=== PATIENT | male | born 1930 | race Caucasian/White ===

== ENCOUNTER → 2016-07-08 | Outpatient (CLI) | payer BC ==
[~2016-07-08] MED LIST: ALBUAER INH; ASMIN/60 PO; CHOL200010 PO; CRDCD120 PO; LEVO50TA PO; PRED-301 PO; SALM50AE2 INH; SNG10 PO
== END | disposition home or self-care (01) ==
LOC: C.LAB1850 13:19
PROVIDERS: ATTEND Psychiatry & Neurology Neurology
DX: I62.9 Nontraumatic intracranial hemorrhage, unspecified (principal); N28.89 Other specified disorders of kidney and ureter

== ENCOUNTER → 2016-07-28 | Outpatient (CLI) | payer BC ==
[~2016-07-28] MED LIST changes: +GADAVIST IV PRN
--- NOTE | 2016-07-28 14:34 | DIAGNOSTIC IMAGING REPORT ---
MRI OF THE BRAIN COMBO CLINICAL HISTORY: Right renal mass. History of hemorrhage. COMPARISON STUDY: CT of the brain dated 05/06/2016. MRI of the brain dated 03/25/2016. TECHNIQUE: MRI of the brain was performed utilizing various T1 and T2-weighted sequences in the axial, sagittal, and coronal planes. Contrast-enhanced sequences were acquired following the administration of 6.5 cc of Gadavist. FINDINGS: Brain parenchyma: There is encephalomalacia with hemosiderin deposition identified in the right posterior temporal lobe at a site of previous hemorrhage. No acute hemorrhage is seen. Subependymal calcifications as well as calcifications within the basal ganglia are similar to previous. There is no restricted diffusion typical for acute ischemia. No enhancing mass lesion is identified on the postcontrast images. There is an indeterminant lesion in the high left posterior frontal lobe with surrounding edema. There is no associated enhancement, this measures approximately 1.5 cm. A calcification was noted in this lesion on previous CT. 2 additional ill-defined cortical based lesions are suggested in the left posterior parietal lobe on coronal FLAIR image #21 and in the anterior left occipital lobe on coronal FLAIR image #20. These were only seen on the FLAIR sequences. Mild nonspecific edema is now seen within the right anterior temporal pole. This is new from 03/25/2016. No extra-axial fluid collection is seen. There is mild patchy subcortical and periventricular microangiopathic disease. The cerebellar tonsils are normal in configuration. Ventricles, sulci, and cisterns: Prominent secondary to involutional change. Pituitary and sella: Unremarkable. Intracranial vasculature: Normal flow voids are maintained at the skull base. Orbits: The bony orbits are grossly intact. Orbital contents are normal in appearance. Sinuses and mastoids: There is trace mucosal thickening within the maxillary and ethmoid sinuses. The remaining paranasal sinuses are clear. There are trace mastoid effusions. Calvarium: Unremarkable. Cervical cord: Partially visualized cervical spinal cord is normal in morphology and signal intensity. IMPRESSION: 1. There is encephalomalacia with associated hemosiderin deposition seen in the right posterior temporal lobe at the site of previous hemorrhage. 2. No acute hemorrhage is seen and there is no evidence of acute ischemia. 3. No enhancing mass is identified. 4. Again seen are numerous subependymal and basal ganglia calcifications suggesting tuberous sclerosis. 5. There is an approximately 1.5 cm nonenhancing lesion which contains a central calcification in the high left posterior frontal lobe. There is surrounding edema FLAIR sequence. The appearance is nonspecific but concerning for a nonenhancing mass such as a low-grade glioma. The appearance is not typical for metastatic disease. 36 month follow-up is recommended for reassessment. 6. Two additional subtle lesions are suggested within the left parietal and left occipital lobes, only seen on the FLAIR sequence. 7. There is mild edema within the anterior right temporal lobe. This was not seen previously and is of indeterminant significance. An additional lesion at this site is not excluded. Electronically signed by: Geo Carpenter M.D. 07/28/2016 2:33 PM Dictated Date/Time: 07/28/2016 2:05 PM
== END | disposition home or self-care (01) ==
LOC: C.MRI 12:21
PROVIDERS: ATTEND Psychiatry & Neurology Neurology
DX: N28.89 Other specified disorders of kidney and ureter (principal); I62.9 Nontraumatic intracranial hemorrhage, unspecified

== ENCOUNTER → 2017-02-17 | Outpatient (CLI) | payer BC ==
[~2017-02-17] MED LIST changes: -GADAVIST IV PRN
[2017-02-17 11:03] LABS: BLOOD UREA NITROGEN 19 mg/dl (7-18)
== END | disposition home or self-care (01) ==
LOC: C.LAB1850 09:32
PROVIDERS: ATTEND Psychiatry & Neurology Neurology
DX: Z00.00 Encounter for general adult medical examination without abnormal findings (principal); R90.89 Other abnormal findings on diagnostic imaging of central nervous system

== ENCOUNTER → 2017-02-20 | Outpatient (CLI) | payer BC ==
[~2017-02-20] MED LIST changes: +GADAVIST IV PRN
--- NOTE | 2017-02-20 17:08 | DIAGNOSTIC IMAGING REPORT ---
BRAIN COMBO CLINICAL HISTORY: 87 years-old Male presenting with ABNORMAL BRAIN MRI, history of right temporal lobe hemorrhagic infarct. TECHNIQUE: Multisequence, multiplanar MR imaging of the brain was performed before and after the administration of intravenous contrast. IV contrast: 7 mL of Gadavist. COMPARISON: 07/28/2016. FINDINGS: Ventricles and sulci normal in size. Interval development of intrinsically T1 intensity in the left frontal lobe consistent with parenchymal hematoma. Surrounding hemorrhage may be present in the subarachnoid space. The previously demonstrated T2 hyperintense 1.9 cm lesion in the high left frontal region again demonstrates peripheral T2 hyperintensity and a inner rim of mild T2 hypointensity (series 6 image 20). This does not enhance and may demonstrate central calcification. The previously identified 2 additional sites of subtle FLAIR abnormality involving the overlying herman matter unchanged in appearance (series 8 images 20 and 21), involving the left parieto-occipital region. Periventricular and scattered subcortical T2/FLAIR hyperintensity likely chronic small vessel ischemic change. This prominently involves the right temporal lobe. Encephalomalacia and gliosis in the right posterior temporal region from prior hemorrhagic infarct. The presence of subependymal calcification is better appreciated on prior CT from 05/06/2016. T2 skull base flow voids preserved. Allowing for the presence of an transiting T1 hyperintensity within the left frontal lesion, no abnormal parenchymal enhancement. Bone marrow signal intensity within the calvarium within normal limits. IMPRESSION: 1. Acute parenchymal hemorrhage in the left frontal lobe with small amount of associated subarachnoid hemorrhage. Assessment for an underlying lesion is difficult given the presence of hemorrhage. Follow-up after resolution is advised. 2. Stable appearance of encephalomalacia and gliosis from prior right temporal lobe parenchymal hemorrhage. 3. Subependymal calcifications better appreciated on prior CT from 05/06/2016. These can be seen in the setting of tuberous sclerosis among other etiologies. 4. Stable appearance of the focal lesion in the high left frontal lobe, which is nonenhancing and contains central calcification. In the setting of tuberous sclerosis, this could represent a cortical/subcortical tuber. The lack of enhancement suggests against a metastasis or high-grade glial neoplasm. 5. Additional abnormal signal intensity involving the overlying herman matter in the left parieto-occipital lobe may represent additional cortical tubers or focal cortical dysplasia. 6. The report will be called/faxed according to standard departmental protocol. Electronically signed by: Karson Kenyon M.D. 02/20/2017 5:06 PM Dictated Date/Time: 02/20/2017 4:45 PM
== END | disposition home or self-care (01) ==
LOC: C.MRI 13:50
PROVIDERS: ATTEND Psychiatry & Neurology Neurology
DX: R90.89 Other abnormal findings on diagnostic imaging of central nervous system (principal); I61.8 Other nontraumatic intracerebral hemorrhage; G93.89 Other specified disorders of brain

== ENCOUNTER → 2017-02-28 | Outpatient (CLI) | payer BC ==
[~2017-02-28] MED LIST changes: -GADAVIST IV PRN
[2017-02-28 10:09] LABS: BASO % 0.4 %; BASO ABS # 0.03 K/uL (0-0.2); COMPLETE YES; EOS % 1.5 %; HEMATOCRIT 50.3 % (42-52); IG% 0.4 %; LYMPH % 36.6 %; LYMPH ABS # 2.49 K/uL (1.2-3.4); MEAN CELL VOLUME 95.6 fL (80-100); MEAN CORPUSCULAR HEMOGLOBIN 33.5 pg (25-34); MEAN PLATELET VOLUME 10.2 fL (7.4-10.4); MONO % 6.8 %; NEUT % 54.3 %; PLATELET COUNT 168 K/uL (130-400); RED BLOOD COUNT 5.26 M/uL (4.7-6.1)
[2017-02-28 10:42] LABS: ALT/SGPT 23 U/L (12-78); BLOOD UREA NITROGEN 27 mg/dl (7-18); BUN/CREATININE RATIO 20.7 (10-20); CARBON DIOXIDE 29 mmol/L (21-32); CHLORIDE 106 mmol/L (98-107); CHOLESTEROL 120 mg/dl (0-200); CREATININE 1.32 mg/dl (0.60-1.40); GLUCOSE 85 mg/dl (70-99); POTASSIUM 3.7 mmol/L (3.5-5.1); SODIUM 141 mmol/L (136-145); TRIGLYCERIDES 162 mg/dl (0-150); VERY LOW DENSITY LIPOPROT CALC 32 mg/dl
[2017-02-28 10:53] LABS: ALB/GLOB RATIO 1.3 (0.9-2); ALKALINE PHOSPHATASE 85 U/L (45-117); AST/SGOT 17 U/L (15-37); CHOLESTEROL/HDL RATIO 2.5; HDL CHOLESTEROL 48 mg/dl; LDL CHOLESTEROL CALCULATED 40 mg/dl
== END | disposition home or self-care (01) ==
LOC: C.LAB1850 08:59
PROVIDERS: ATTEND Psychiatry & Neurology Neurology
DX: J30.9 Allergic rhinitis, unspecified (principal); I35.0 Nonrheumatic aortic (valve) stenosis; J45.909 Unspecified asthma, uncomplicated; F32.9 Major depressive disorder, single episode, unspecified; I10 Essential (primary) hypertension; E03.9 Hypothyroidism, unspecified; I61.9 Nontraumatic intracerebral hemorrhage, unspecified

== ENCOUNTER → 2017-03-08 | Outpatient (CLI) | payer BC ==
[~2017-03-08] MED LIST changes: -CRDCD120 PO; +DILT120C50 PO; +OPTIRAY 320 IV PRN
--- NOTE | 2017-03-08 11:25 | DIAGNOSTIC IMAGING REPORT ---
ANGIOGRAPHY HEAD COMBO HISTORY: Intracranial hemorrhage intracranial hemorrhage TECHNIQUE: Multiaxial CT images of the head were performed both before and after the intravenous administration of contrast to evaluate the major cerebral vessels. Maximum intensity projection images were also obtained. A dose lowering technique was utilized adhering to the principles of ALARA. COMPARISON: 05/06/2016 FINDINGS: There is no mass, hematoma, midline shift, or acute infarct. Produces described hemorrhagic foci have resolved. There is no evidence for abnormal postcontrast enhancement. Age-related atrophy and chronic small vessel change are present throughout. Ventricular system is midline. No significant postcontrast enhancement. Visualized intracranial internal carotid arteries, distal vertebral arteries, and basilar artery are widely patent. There is no significant stenosis, occlusion, or aneurysm seen within the bilateral ACAs, MCAs, or dumper operator. IMPRESSION: 1. Interval resolution of all intracranial hemorrhagic components. 2. Age-related atrophy, regions of encephalomalacia, as well as a chronic small vessel change. No abnormal postcontrast enhancement 3. Negative CTA of the brain for age. The above report was generated using voice recognition software. It may contain grammatical, syntax or spelling errors. Electronically signed by: Jurgen Lopez M.D. 03/08/2017 11:23 AM Dictated Date/Time: 03/08/2017 11:16 AM
== END | disposition home or self-care (01) ==
LOC: C.CTS 10:30
PROVIDERS: ATTEND Psychiatry & Neurology Neurology
DX: I61.9 Nontraumatic intracerebral hemorrhage, unspecified (principal); G31.1 Senile degeneration of brain, not elsewhere classified

== ENCOUNTER 2017-08-14 14:34 | Observation (INO) | payer BC ==
[~2017-08-14] VITALS: Ht 167.6 cm; Wt 68.9 kg
[~2017-08-14 14:34] MED LIST changes: -ASMIN/60 PO; +DILT-202 PO; -DILT120C50 PO; -OPTIRAY 320 IV PRN; -SNG10 PO
[2017-08-14] MEDS ORDERED: KETOROLAC TROMETHAMINE 30 MG/ML VIAL IV STA (14:53)
[2017-08-14] MEDS ORDERED: SNG10 PO (14:58)
[2017-08-14] MEDS ORDERED: ASMIN/60 INH (14:59)
[2017-08-14 15:33] LABS: BASO % 0.3 %; BASO ABS # 0.02 K/uL (0-0.2); EOS % 0.7 %; EOS ABS # 0.05 K/uL (0-0.5); HEMATOCRIT 49.8 % (42-52); HEMOGLOBIN 17.4 g/dL (14.0-18.0); IG# 0.02 K/uL (0.00-0.02); LYMPH % 31.3 %; LYMPH ABS # 2.26 K/uL (1.2-3.4); MEAN CELL VOLUME 94.9 fL (80-100); MEAN CORPUSCULAR HEMOGLOBIN 33.1 pg (25-34); MEAN CORPUSCULAR HGB CONC 34.9 g/dl (32-36); MEAN PLATELET VOLUME 9.6 fL (7.4-10.4); MONO % 6.7 %; MONO ABS # 0.48 K/uL (0.11-0.59); NEUT % 60.7 %; NEUT ABS # 4.38 K/uL (1.4-6.5); PLATELET COUNT 197 K/uL (130-400); RED CELL DISTRIBUTION WIDTH CV 13.5 % (11.5-14.5); RED CELL DISTRIBUTION WIDTH SD 46.7 fL (36.4-46.3); WHITE BLOOD COUNT 7.21 K/uL (4.8-10.8)
[2017-08-14 15:46] LABS: PTT PATIENT 25.2 SECONDS (21.0-31.0)
[2017-08-14 15:49] LABS: CREATININE 1.48 mg/dl (0.60-1.40); POTASSIUM 3.5 mmol/L (3.5-5.1)
[2017-08-14] MEDS ORDERED: ARC10 PO (16:08)
[2017-08-14] MEDS ORDERED: LEVO50TA6 PO (16:08)
[2017-08-14] MEDS ORDERED: SRVDIN60 INH (16:09)
[2017-08-14] MEDS ORDERED: SERT1TAB88 PO (16:09)
[2017-08-14] MEDS ORDERED: VNTHFA/IN INH (16:09)
[2017-08-14] MEDS ORDERED: CHOL100027 PO (16:09)
--- NOTE | 2017-08-14 16:31 | DIAGNOSTIC IMAGING REPORT ---
TWO VIEW CHEST CLINICAL HISTORY: Dyspnea. FINDINGS: AP and lateral chest radiographs are compared to study dated 03/25/2016 and correlated with chest CT dated 02/19/2016. The AP view is degraded by patient rotation. The 2-lead cardiac pacemaker is unchanged in position and partially obscures the right upper chest. The heart is enlarged and there is atherosclerotic calcification of the thoracic aorta. The pulmonary vasculature is noncongested. Emphysema and chronic interstitial thickening are similar to previous. No airspace consolidation or pleural effusion is identified. Apical scarring is observed. There is no pneumothorax. The skeletal structures are osteopenic. The bony thorax appears intact. IMPRESSION: 1. Cardiomegaly and cardiac pacemaker. There is no radiographic evidence of congestive failure. 2. No airspace consolidation or pleural effusion is identified. Electronically signed by: Geo Carpenter M.D. 08/14/2017 4:29 PM Dictated Date/Time: 08/14/2017 4:28 PM
--- NOTE | 2017-08-14 16:32 | DIAGNOSTIC IMAGING REPORT ---
L-SPINE MIN 4 VIEWS ROUTINE CLINICAL HISTORY: Back pain. Evaluate for fracture. COMPARISON: Lumbar spine radiographs February 13, 2015. FINDINGS: Mild loss of height of L1 is unchanged exam of February 13, 2015. There is no acute fracture. There is moderate multilevel degenerative disc disease and facet arthrosis. The appearance is similar to exam of February 13, 2015. IMPRESSION: 1. No acute lumbar spine fracture or subluxation. 2. 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 3. 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 Electronically signed by: Miles Wisdom M.D. 08/14/2017 4:31 PM Dictated Date/Time: 08/14/2017 4:30 PM
[2017-08-14] MEDS ORDERED: ACETAMINOPHEN 325 MG TAB PO PRN (17:15)
[2017-08-14] MEDS ORDERED: NITROGLYCERIN 0.4 MG SL PER TAB CHARGE SL PRN (17:15)
[2017-08-14] MEDS ORDERED: MAGNESIUM HYDROXIDE SUSP 30 ML UDC PO PRN (17:15)
[2017-08-14] MEDS ORDERED: ONDANSETRON INJ 2 MG/ML 2 ML VIAL IV PRN (17:15)
[2017-08-14] MEDS ORDERED: POLYETHYLENE (MIRALAX) 17 GM PACK PO PRN (17:15)
[2017-08-14] MEDS ORDERED: MoRPHine SULFATE 2 MG/ML CARP IV PRN (17:15)
[2017-08-14] MEDS ORDERED: ALBUTEROL HFA 8 GM INHALER INH PRN (17:15)
[2017-08-14] MEDS ORDERED: ALUMINUM/MAGNESIUM/SIMETH (MAALOX MAX) 30 ML UDC PO PRN (17:15)
[2017-08-14] MEDS ORDERED: KETOROLAC TROMETHAMINE 15 MG/ML VIAL IM PRN (17:30)
--- NOTE | 2017-08-14 17:45 | History and Physical ---
History & Physical Date & Time of Service: Aug 14, 2017 at 17:24 Chief Complaint: Severe Back Pain, Sob Primary Care Physician: Michel Junior M.D. History of Present Illness Source: patient, spouse 87 year old gentleman with history of hemorrhagic CVA in 2016. 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 Also with hypothyroidism and asthma. Has some chronic low back pain. Notes he gets SOB with activity at baseline. This morning his right low back pain was much more intense and he noted he was more SOB than normal. He had no chest pain, tightness or pressure. He was slightly nauseous, but denied diaphoresis. His back pain is non radiating. Worsens with walking and prolonged sitting. He tried Tylenol with minimal relief. His brought him to the ED primarily for the back pain that was persisting. He had a lumbar spine x-ray which showed no acute process. There was an old compression fracture at L1 and some multilevel facet arthropathy. CXR was without acute process as well. He had routine labs and troponin. Troponin was mildly elevated at 0.5. He was given toradol which helped the back pain. Due to the slightly elevated troponin, hospital medicine was asked to see the patient. Past Medical/Surgical History Medical Problems: (1) Acute bronchitis (2) Asthma (3) Bronchitis (4) Hypertension (5) Intraparenchymal hemorrhage of brain (6) Sick sinus syndrome (7) Sinus arrest (8) SOB (shortness of breath) Past surgical history - denies any significant surgeries Family History Cancer FHx: lung disease Social History Smoking Status: Never Smoker Smokeless Tobacco Use: No Alcohol Use: none Drug Use: none Marital Status: Housing status: lives with significant other Occupational Status: retired Allergies Coded Allergies: No Known Allergies (Unverified , 03/25/16) Home Medications Scheduled Cholecalciferol (Vitamin D 1000 Unit), 1,000 INTER.UNIT PO DAILY Donepezil HCl (Donepezil HCl), 10 MG PO HS Levothyroxine Sodium (Levothyroxine Sodium), 50 MCG PO DAILY Mometasone Furoate (Asmanex Twisthaler 60 Met), 1 PUFF INH BID Montelukast Sod (Montelukast Sodium), 10 MG PO DAILY Salmeterol Xinafoate (Serevent Diskus), 1 PUFF INH BID Sertraline HCl (Sertraline HCl), 12.5 MG PO DAILY Scheduled PRN Albuterol Hfa (Ventolin Hfa), 2 PUFFS INH Q4-6HRS PRN for Rescue Review of Systems Constitutional: No fever, No chills, No sweats, No weight loss, No weakness, No fatigue, No problem reported Eyes: No worsening of vision, No eye pain, No redness, No discharge, No diplopia, No problem reported ENT: No hearing loss, No unusual epistaxis, No nasal symptoms, No sore throat, No tinnitus, No dental problems, No trouble swallowing, No problem reported Respiratory: + shortness of breath Cardiovascular: No chest pain, No orthopnea, No PND, No edema, No claudication , No palpitations, No problem reported Abdomen: No pain, No nausea, No vomiting, No diarrhea, No constipation, No GI bleeding, No problem reported Musculoskeletal: + problem reported (right low back pain) Genitourinary - Male: No hematuria, No dysuria, No urinary frequency, No urinary urgency, No urinary hesitancy, No urinary retention, No urinary incontinence, No penile discharge, No lesions, No impotence, No problem reported Neurologic: + memory loss (mild), No paralysis, No weakness, No numbness/ tingling, No vertigo, No balance problems, No problem reported Psychiatric: No depression symptoms, No anhedonism, No anxiety, No insomnia, No substance abuse, No problem reported Endocrine: No fatigue, No excessive thirst, No excessive urination, No problem reported Hematologic / Lymphatic: No abnormal bleeding/bruising, No clotting problems, No swollen lymph nodes, No night sweats, No problem reported Integumentary: No rash, No itch, No new/changing skin lesions, No color change , No bleeding, No problem reported Allergic / Immunologic: No environmental allergies, No seasonal allergies, No pet sensitivities, No food allergies, No hives, No frequent infections, No poor healing, No prolonged convalescence, No problem reported Physical Exam Vital Signs Date Time Temp Pulse Resp B/P (MAP) Pulse Ox O2 Delivery O2 Flow Rate FiO2 08/14/17 16:21 67 16 153/74 94 Room Air 08/14/17 15:23 98 Room Air 08/14/17 15:20 98 Room Air 08/14/17 15:18 61 08/14/17 14:39 36.6 60 20 158/72 95 Room Air General Appearance: WD/WN Head: normocephalic, atraumatic Eyes: normal inspection, sclerae normal ENT: hearing grossly normal, pharynx normal Neck: supple, no JVD Respiratory/Chest: chest non-tender, lungs clear, normal breath sounds Cardiovascular: regular rate, rhythm, no edema, no JVD, + systolic murmur Abdomen/GI: normal bowel sounds, non tender, soft Back: normal inspection, no CVA tenderness, no muscle spasm, + pertinent finding (tenderness over the area of the right SI joint) Extremities/Musculoskelatal: normal inspection Neurologic/Psych: alert, normal mood/affect, oriented x 3 Skin: normal color Diagnostics Laboratory Results Results Past 24 Hours Test 08/14/17 15:10 08/14/17 15:18 Range/Units White Blood Count 7.21 4.8-10.8 K/uL Red Blood Count 5.25 4.7-6.1 M/uL Hemoglobin 17.4 14.0-18.0 g/dL Hematocrit 49.8 42-52 % Mean Corpuscular Volume 94.9 80-100 fL Mean Corpuscular Hemoglobin 33.1 25-34 pg Mean Corpuscular Hemoglobin Concent 34.9 32-36 g/dl Platelet Count 197 130-400 K/uL Mean Platelet Volume 9.6 7.4-10.4 fL Neutrophils (%) (Auto) 60.7 % Lymphocytes (%) (Auto) 31.3 % Monocytes (%) (Auto) 6.7 % Eosinophils (%) (Auto) 0.7 % Basophils (%) (Auto) 0.3 % Neutrophils # (Auto) 4.38 1.4-6.5 K/uL Lymphocytes # (Auto) 2.26 1.2-3.4 K/uL Monocytes # (Auto) 0.48 0.11-0.59 K/uL Eosinophils # (Auto) 0.05 0-0.5 K/uL Basophils # (Auto) 0.02 0-0.2 K/uL RDW Standard Deviation 46.7 36.4-46.3 fL RDW Coefficient of Variation 13.5 11.5-14.5 % Immature Granulocyte % (Auto) 0.3 % Immature Granulocyte # (Auto) 0.02 0.00-0.02 K/uL Prothrombin Time 10.9 9.0-12.0 SECONDS Prothromb Time International Ratio 1.0 0.9-1.1 Activated Partial Thromboplast Time 25.2 21.0-31.0 SECONDS Partial Thromboplastin Ratio 1.0 Sodium Level 140 136-145 mmol/L Potassium Level 3.5 3.5-5.1 mmol/L Chloride Level 103 98-107 mmol/L Carbon Dioxide Level 27 21-32 mmol/L Anion Gap 10.0 3-11 mmol/L Blood Urea Nitrogen 24 7-18 mg/dl Creatinine 1.48 0.60-1.40 mg/dl Est Creatinine Clear Calc Drug Dose 32.9 ml/min Estimated GFR () 49.3 Estimated GFR (Non- 42.5 BUN/Creatinine Ratio 16.0 10-20 Random Glucose 130 70-99 mg/dl Calcium Level 9.0 8.5-10.1 mg/dl Bedside Troponin I 0.050 0-0.045 ng/ml Diagnostic Radiology L-SPINE MIN 4 VIEWS ROUTINE CLINICAL HISTORY: Back pain. Evaluate for fracture. COMPARISON: Lumbar spine radiographs February 13, 2015. FINDINGS: Mild loss of height of L1 is unchanged exam of February 13, 2015. There is no acute fracture. There is moderate multilevel degenerative disc disease and facet arthrosis. The appearance is similar to exam of February 13, 2015. IMPRESSION: 1. No acute lumbar spine fracture or subluxation. 2. 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 3. 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 CXR normal Normal EKG Impression Assessment and Plan 87 year old gentleman with history of hemorrhagic stroke in 2016. Presented to the ED with back pain and shortness of breath. 1. NSTEMI - mild bump in troponin. cycle troponins, ask cards to see. Tele - EKG with any chest pain. 2. lumbago, right SI joint dysfunction - X-ray of lumbar spine with degenerative changes. lidoderm - toradol, tylenol 3. Prior CVA 4. DVT prophylaxis with SCD, SELINA and Heparin 5. full code 6. ELS one midnight. Resuscitation Status VTE Prophylaxis Will order VTE Prophylaxis: Yes Social Service Consult None Apply Reviewed: Pt Seen/Exam by Me History Back pain is better now. No chest pain at all. Tolerating PO without issue. SOB at baseline per , however pt denies this. She states it was worse this morning with the increased back pain Agree with HPI/ROS as noted by [employer] General Appearance: WD/WN, no apparent distress Eye Exam: bilateral eye normal inspection, bilateral eye other (nml sclera) Respiratory: normal breath sounds, no respiratory distress Cardiovascular: normal peripheral pulses, regular rate, rhythm Gastrointestinal: non tender, soft Extremities: non-tender, no pedal edema Neurologic/Psychiatric: alert, normal mood/affect Skin Characteristics: normal color, warm/dry Assessment/Plan Agree with plan as outlined above Elevated trop ECHO Cards c/s
[2017-08-14 18:42] VITALS: BP 170/85; PULSE 95; TEMP 36.8; O2SAT 93
[2017-08-14 19:13] VITALS: BP 170/85; PULSE 95; TEMP 36.8; O2SAT 93; Ht 167.6 cm; Wt 68.9 kg
--- NOTE | 2017-08-14 19:25 | EMERGENCY ROOM VISIT NOTE ---
History Report prepared by [place]: Jose Tovar Under the Supervision of: Dr. Rohan Aparicio M.D. First contact with patient: 14:42 Chief Complaint: SHORTNESS OF BREATH Stated Complaint: SEVERE BACK PAIN, SOB History of Present Illness The patient is a 87 year old male who presents to the Emergency Room with complaints of constant right lower back pain beginning a few weeks ago. His pain worsened today. He describes his pain as "sharp". The patient's pain is worsened with movement. He has a history of degenerative disc disease. He has never received treatment for his back pain. The patient denies any pain radiation into his groin or legs. He does not recall recent trauma or straining. He has a history of chronic back pain, but his current pain is different than normal. The patient has a history of asthma. He states that he has felt a little more short of breath over the past two weeks as well. He states is worse with any mild exertion. He feels that this is partially due to his current pain. The patient denies numbness or weakness to his legs. He denies loss of continence. He denies fevers, cough, abdominal pain, chest pain, or urinary symptoms. The patient has a history of previous hemorrhagic stroke ( 2016). Source of History: patient Onset: A few weeks ago Position: back (right lower) Quality: sharp Timing: constant Modifying Factors (Worsening): movement Associated Symptoms: + SOB (two weeks), No fevers, No cough, No chest pain, No abdominal pain, No urinary symptoms, No weakness (legs), No numbness (legs) Note: Negative: loss of continence, or pain radiation to the groin or legs. Review of Systems See HPI for pertinent positives & negatives. A total of 10 systems reviewed and were otherwise negative. Past Medical & Surgical Medical Problems: (1) Asthma (2) Bronchitis (3) Hypertension (4) Lumbago without sciatica (5) NSTEMI (non-ST elevated myocardial infarction) (6) Sick sinus syndrome (7) SOB (shortness of breath) Family History Cancer FHx: lung disease Social History Smoking Status: Never Smoker Alcohol Use: none Drug Use: none Marital Status: Housing Status: lives with family Occupation Status: retired Current/Historical Medications Scheduled Cholecalciferol (Vitamin D 1000 Unit), 1,000 INTER.UNIT PO DAILY Donepezil HCl (Donepezil HCl), 10 MG PO HS Levothyroxine Sodium (Levothyroxine Sodium), 50 MCG PO DAILY Mometasone Furoate (Asmanex Twisthaler 60 Met), 1 PUFF INH BID Montelukast Sod (Montelukast Sodium), 10 MG PO DAILY Salmeterol Xinafoate (Serevent Diskus), 1 PUFF INH BID Sertraline HCl (Sertraline HCl), 12.5 MG PO DAILY Scheduled PRN Albuterol Hfa (Ventolin Hfa), 2 PUFFS INH Q4-6HRS PRN for Rescue Allergies Coded Allergies: No Known Allergies (Unverified , 03/25/16) Physical Exam Vital Signs Date Time Temp Pulse Resp B/P (MAP) Pulse Ox O2 Delivery O2 Flow Rate FiO2 08/14/17 16:21 67 16 153/74 94 Room Air 08/14/17 15:23 98 Room Air 08/14/17 15:20 98 Room Air 08/14/17 15:18 61 08/14/17 14:39 36.6 60 20 158/72 95 Room Air Physical Exam Constitutional: Vital signs reviewed. Eyes: Pupils are equal round reactive to light. Conjunctiva are noninjected. ENT: Pharynx is clear without erythema or exudate. Mucous membranes are moist. Neck supple without meningeal signs. Respiratory: Clear to auscultation bilaterally. Breath sounds are equal bilaterally. Cardiovascular: Regular rate and rhythm. No rubs or gallops. GI: Soft, nondistended and nontender. Bowel sounds are present. Musculoskeletal: No peripheral edema. No lower extremity tenderness. No midline tenderness to the lumbar spine. Integumentary: No cyanosis. Neurological: The patient is awake and alert. No focal deficits. Normal sensation and motor throughout the lower extremities. Psychiatric: Normal affect. Medical Decision & Procedures ER Provider Diagnostic Interpretation: Radiology results as stated below per my review and the radiologist's interpretation: TWO VIEW CHEST FINDINGS: AP and lateral chest radiographs are compared to study dated 03/25/2016 and correlated with chest CT dated 02/19/2016. The AP view is degraded by patient rotation. The 2-lead cardiac pacemaker is unchanged in position and partially obscures the right upper chest. The heart is enlarged and there is atherosclerotic calcification of the thoracic aorta. The pulmonary vasculature is noncongested. Emphysema and chronic interstitial thickening are similar to previous. No airspace consolidation or pleural effusion is identified. Apical scarring is observed. There is no pneumothorax. The skeletal structures are osteopenic. The bony thorax appears intact. IMPRESSION: 1. Cardiomegaly and cardiac pacemaker. There is no radiographic evidence of congestive failure. 2. No airspace consolidation or pleural effusion is identified. Electronically signed by: Geo Carpenter M.D. 08/14/2017 4:29 PM L-SPINE MIN 4 VIEWS ROUTINE FINDINGS: Mild loss of height of L1 is unchanged exam of February 13, 2015. There is no acute fracture. There is moderate multilevel degenerative disc disease and facet arthrosis. The appearance is similar to exam of February 13, 2015. IMPRESSION: 1. No acute lumbar spine fracture or subluxation. 2. 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 3. 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 Electronically signed by: Miles Wisdom M.D. 08/14/2017 4:31 PM Laboratory Results 08/14/17 15:10 Red Blood Count 5.25, Mean Corpuscular Volume 94.9, Mean Corpuscular Hemoglobin 33.1, Mean Corpuscular Hemoglobin Concent 34.9, Mean Platelet Volume 9.6, Neutrophils (%) (Auto) 60.7, Lymphocytes (%) (Auto) 31.3, Monocytes (%) (Auto) 6.7, Eosinophils (%) (Auto) 0.7, Basophils (%) (Auto) 0.3, Neutrophils # (Auto) 4.38, Lymphocytes # (Auto) 2.26, Monocytes # (Auto) 0.48, Eosinophils # (Auto) 0.05, Basophils # (Auto) 0.02 08/14/17 15:10 Test 08/14/17 15:10 08/14/17 15:18 White Blood Count 7.21 K/uL (4.8-10.8) Red Blood Count 5.25 M/uL (4.7-6.1) Hemoglobin 17.4 g/dL (14.0-18.0) Hematocrit 49.8 % (42-52) Mean Corpuscular Volume 94.9 fL (80-100) Mean Corpuscular Hemoglobin 33.1 pg (25-34) Mean Corpuscular Hemoglobin Concent 34.9 g/dl (32-36) Platelet Count 197 K/uL (130-400) Mean Platelet Volume 9.6 fL (7.4-10.4) Neutrophils (%) (Auto) 60.7 % Lymphocytes (%) (Auto) 31.3 % Monocytes (%) (Auto) 6.7 % Eosinophils (%) (Auto) 0.7 % Basophils (%) (Auto) 0.3 % Neutrophils # (Auto) 4.38 K/uL (1.4-6.5) Lymphocytes # (Auto) 2.26 K/uL (1.2-3.4) Monocytes # (Auto) 0.48 K/uL (0.11-0.59) Eosinophils # (Auto) 0.05 K/uL (0-0.5) Basophils # (Auto) 0.02 K/uL (0-0.2) RDW Standard Deviation 46.7 fL (36.4-46.3) RDW Coefficient of Variation 13.5 % (11.5-14.5) Immature Granulocyte % (Auto) 0.3 % Immature Granulocyte # (Auto) 0.02 K/uL (0.00-0.02) Prothrombin Time 10.9 SECONDS (9.0-12.0) Prothromb Time International Ratio 1.0 (0.9-1.1) Activated Partial Thromboplast Time 25.2 SECONDS (21.0-31.0) Partial Thromboplastin Ratio 1.0 Anion Gap 10.0 mmol/L (3-11) Est Creatinine Clear Calc Drug Dose 32.9 ml/min Estimated GFR () 49.3 Estimated GFR (Non- 42.5 BUN/Creatinine Ratio 16.0 (10-20) Calcium Level 9.0 mg/dl (8.5-10.1) Bedside Troponin I 0.050 ng/ml (0-0.045) Laboratory results as reviewed by me. Medications Administered Medications (Trade) Dose Ordered Sig/Josh Route Start Time Stop Time Status Last Admin Dose Admin Ketorolac Tromethamine (Toradol Inj) 10 mg NOW STAT IV 08/14/17 14:53 08/14/17 14:55 DC 08/14/17 15:32 10 MG ECG Per My Interpretation Indication: SOB/dyspnea Rate (beats per minute): 79 Rhythm: other (Atrial paced. ) Findings: ST depression (Lateral), other (No PVCs. Prolonged AV conduction. ) Comparison ECG Date: Mar 25, 2016 Change: no significant change ED Course 1444: The patient was evaluated in room B10. A complete history and physical exam was performed. 1453: Ordered Toradol Inj 10 mg IV. 1606: I discussed the patient's test results with him. 1650: Upon reevaluation, the patient is resting. I discussed tonight's findings with him. He verbalized agreement of the treatment plan. The patient will be evaluated for further management. Medical Decision This is an 87-year-old male who presents with back pain and dyspnea on exertion. Differential diagnosis includes spinal stenosis, lumbar disc disease , compression fracture, asthma exacerbation, pneumonia, cardiac. I did perform a limited focused review of portions of the patient's old chart on the electronic medical record. The patient has had no recent pertinent visits to this hospital. I did evaluate the patient as noted above. The patient is presenting with right -sided lower back pain. It is worse with movement, especially sitting and standing. He has no neurologic or vascular deficits. He also complains of dyspnea on exertion for about the past 2 weeks. On examination he has no wheezing. IV access was established. The patient was placed on a continuous residential monitor. I did order and personally review the patient's 12-lead EKG and chest/lumbar spine x-ray as described above. His twelve-lead EKG demonstrates a paced rhythm with ST depressions laterally. These were present on his previous EKG. the x-rays did not demonstrate an acute fracture. He did have degenerative disease in the lumbar spine. I did order and review the patient's blood work as noted in the electronic medical record. Troponin is mildly elevated. I did discuss the test results with the patient and his . Given his dyspnea on exertion with an elevated troponin I did feel he should be hospitalized for further evaluation and repeat cardiac enzymes. I did treat patient with Toradol IV for his pain. I did discuss case with the hospitalist and supportive employment case manager. Medication Reconcilliation Current Medication List: was personally reviewed by me Blood Pressure Screening Patient's blood pressure: Elevated blood pressure Blood pressure disposition: Referred to PCP Consults Time Called: 1640 Consulting Physician: Stevie MILAN Hospitalist Returned Call: [phone] I spoke with Stevie [facility]. We discussed the patient and his results. The patient will be further evaluated by JOHNG. Impression Primary Impression: BECERRA (dyspnea on exertion) Additional Impressions: Elevated troponin Lower back pain Scribe Attestation The scribe's documentation has been prepared under my direct and personally reviewed by me in its entirety. I confirm that the note above accurately reflects all work, treatment, procedures, and medical decision making performed by me. Departure Information Dispostion Being Evaluated By Hospitalist Referrals Michel Junior M.D. (PCP) Patient Instructions My [facility] Problem Qualifiers Additional Impressions: Lower back pain Chronicity: unspecified Back pain laterality: right Sciatica presence: without sciatica Qualified Codes: M54.5 - Low back pain
[2017-08-14] MEDS ORDERED: LIDODERM (LIDOCAINE) PATCH 5% TD SCH (19:30)
[2017-08-14] MEDS ORDERED: IV FLUIDS COMPLETED PRN (20:15)
[2017-08-14] MEDS: MOMETASONE FUROATE 14 PUFF/1 INHALER INH SCH (20:49)
[2017-08-14] MEDS: SALMETEROL XINAFOATE 50MCG 28 BLISTER INH INH SCH (20:50)
[2017-08-14] MEDS: HEPARIN SOD 5000 UNIT/0.5 ML CARP SQ SCH (20:50)
[2017-08-14 20:53] VITALS: BP 155/86; PULSE 92; O2SAT 95
[2017-08-14] MEDS ORDERED: DONEPEZIL HCL 10 MG TAB PO SCH (21:00)
[2017-08-14] MEDS ORDERED: KETOROLAC TROMETHAMINE 15 MG/ML VIAL IV. PRN (22:00)
[2017-08-14] MEDS ORDERED: NURSING VERBAL MED ORDER ONE (22:00)
[2017-08-14 23:13] VITALS: BP 151/68; PULSE 62; TEMP 36.8; O2SAT 94
[2017-08-15 03:33] VITALS: BP 155/74; PULSE 61; TEMP 36.7; O2SAT 95
[2017-08-15] MEDS ORDERED: LEVOTHYROXINE 50 MCG TAB PO SCH (06:30)
[2017-08-15 07:26] VITALS: BP 151/74; PULSE 61; TEMP 36.7; O2SAT 95
[2017-08-15] MEDS: HEPARIN SOD 5000 UNIT/0.5 ML CARP SQ SCH (07:45)
[2017-08-15] MEDS: SALMETEROL XINAFOATE 50MCG 28 BLISTER INH INH SCH (08:05)
[2017-08-15] MEDS: MOMETASONE FUROATE 14 PUFF/1 INHALER INH SCH (08:06)
--- NOTE | 2017-08-15 08:47 | Hospitalist Progress Note ---
Hospitalist Progress Note Date of Service Aug 15, 2017. Objective Vital Signs Date Time Temp Pulse Resp B/P (MAP) Pulse Ox O2 Delivery O2 Flow Rate FiO2 08/15/17 07:26 36.7 61 16 151/74 (99) 95 Room Air 08/15/17 04:00 Room Air 08/15/17 03:33 36.7 61 18 155/74 (101) 95 Room Air 08/15/17 00:00 Room Air 08/14/17 23:13 36.8 62 18 151/68 (95) 94 Room Air 08/14/17 20:53 92 155/86 (109) 95 Room Air 08/14/17 19:13 36.8 95 18 170/85 93 Room Air 08/14/17 18:42 36.8 95 18 170/85 (113) 93 08/14/17 17:35 60 16 143/72 95 Room Air 08/14/17 16:21 67 16 153/74 94 Room Air 08/14/17 15:23 98 Room Air 08/14/17 15:20 98 Room Air 08/14/17 15:18 61 08/14/17 14:39 36.6 60 20 158/72 95 Room Air Laboratory Results Last 24 Hours Test 08/14/17 15:10 08/14/17 15:18 08/14/17 20:23 08/14/17 22:15 White Blood Count 7.21 K/uL Red Blood Count 5.25 M/uL Hemoglobin 17.4 g/dL Hematocrit 49.8 % Mean Corpuscular Volume 94.9 fL Mean Corpuscular Hemoglobin 33.1 pg Mean Corpuscular Hemoglobin Concent 34.9 g/dl Platelet Count 197 K/uL Mean Platelet Volume 9.6 fL Neutrophils (%) (Auto) 60.7 % Lymphocytes (%) (Auto) 31.3 % Monocytes (%) (Auto) 6.7 % Eosinophils (%) (Auto) 0.7 % Basophils (%) (Auto) 0.3 % Neutrophils # (Auto) 4.38 K/uL Lymphocytes # (Auto) 2.26 K/uL Monocytes # (Auto) 0.48 K/uL Eosinophils # (Auto) 0.05 K/uL Basophils # (Auto) 0.02 K/uL RDW Standard Deviation 46.7 fL RDW Coefficient of Variation 13.5 % Immature Granulocyte % (Auto) 0.3 % Immature Granulocyte # (Auto) 0.02 K/uL Prothrombin Time 10.9 SECONDS Prothromb Time International Ratio 1.0 Activated Partial Thromboplast Time 25.2 SECONDS Partial Thromboplastin Ratio 1.0 Sodium Level 140 mmol/L Potassium Level 3.5 mmol/L Chloride Level 103 mmol/L Carbon Dioxide Level 27 mmol/L Anion Gap 10.0 mmol/L Blood Urea Nitrogen 24 mg/dl Creatinine 1.48 mg/dl Est Creatinine Clear Calc Drug Dose 32.9 ml/min Estimated GFR () 49.3 Estimated GFR (Non- 42.5 BUN/Creatinine Ratio 16.0 Random Glucose 130 mg/dl Calcium Level 9.0 mg/dl Bedside Troponin I 0.050 ng/ml Troponin I 0.054 ng/ml Urine Color DK YELLOW Urine Appearance CLOUDY Urine pH 5.0 Urine Specific [place] 1.036 Urine Protein 1+ Urine Glucose (UA) 1+ Urine Ketones 1+ Urine Occult Blood 1+ Urine Nitrite NEG Urine Bilirubin NEG Urine Urobilinogen NEG Urine Leukocyte Esterase NEG Urine WBC (Auto) 1-5 /hpf Urine RBC (Auto) 5-10 /hpf Urine Hyaline Casts (Auto) 5-10 /lpf Urine Epithelial Cells (Auto) 10-20 /lpf Urine Bacteria (Auto) NEG Test 08/15/17 01:28 08/15/17 07:51 Troponin I 0.057 ng/ml 0.056 ng/ml Assessment and Plan 87 year old gentleman with history of hemorrhagic stroke in 2016. Presented to the ED with back pain and shortness of breath. Found to have mild bump in troponin in the ER. Elevated Troponin NSTEMI - mild bump in troponin: from 0.050 --> 0.054 --> 0.057 - pt was tachycardic with HR in mid 90s last evening, possible that this was playing a role. - Cardiology consulted - EKG reviewed - prn for any chest pain. Lumbago, right SI joint dysfunction - X-ray of lumbar spine with degenerative changes - no acute findings. Showing multilevel degenerative disc disease and facet arthrosis. 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
[2017-08-15] MEDS ORDERED: MONTELUKAST SOD 10 MG TAB PO SCH (09:00)
[2017-08-15] MEDS ORDERED: SERTRALINE HCL 50 MG TAB PO SCH (09:00)
[2017-08-15] MEDS ORDERED: ASPIRIN 81 MG ECTAB PO SCH (09:00)
--- NOTE | 2017-08-15 09:20 | Cardiology Consultation ---
Cardiology Consultation Date of Consultation: Aug 15, 2017. Requesting Physician: Charlie Reason for Consultation: ELevated troponin Pt evaluation today including: conversation w/ patient, physical exam, chart review, lab review, review of studies, review of inpatient medication list History of Present Illness The patient is an 87-year-old gentleman without a known history of coronary disease who presented to [facility] yesterday with symptoms of right lower back pain. Patient apparently has had symptoms in his lower back for several days to weeks. This has limited his ambulation. He apparently did not have symptoms that radiated to his legs or any change in his bowel or bladder habits. He was administered analgesics in the emergency room with some relief. This morning the patient states that his pain is improved but not eliminated entirely. It seems that the patient did undergo a laboratory evaluation which involved cardiac biomarkers. When these markers were not entirely normal he was admitted for observation over the course of the evening. The patient states that he has not had any symptoms of chest discomfort. He has not had any dizziness or lightheadedness. He has not suffered a syncopal episode. He is ambulatory with limitations noted above. He states that he is waiting for better whether in order to be more active outside. He does have some stairs at home which lead to his sellar. He can ascend stairs without notable symptoms. I reviewed the patient's records suggest that he does have dyspnea on occasion which may have been progressive over the past few weeks. However, the patient did not endorse the symptoms this morning. Should be noted that the patient's was not present for the interview this morning. Currently he is feeling well with the exception of his back discomfort. He denies orthopnea or paroxysmal nocturnal dyspnea. He states he does have some difficulty falling asleep at night but once he is a sleepy does not awaken. He has not been aware of any palpitations. He has not noticed any swelling of lower extremities. Past Medical/Surgical History Intercerebral hemorrhage x2 Aortic stenosis, moderate Asthma Sick sinus syndrome status post pacemaker implantation Dementia Hiatal hernia Lumbar disc disease Hypertension Hypothyroidism Past surgical history: Mohs surgery Family History Cancer FHx: lung disease Noncontributory given his advanced age Social History Smoking Status: Never Smoker History of Alcohol Use: No Currently lives at home with his . 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 No recent constitutional symptoms such as fevers or chills. All Other Systems: Reviewed and Negative Allergies Coded Allergies: No Known Allergies (Unverified , 03/25/16) Medications Current Inpatient Medications Medications (Trade) Dose Ordered Sig/Josh Route Start Time Stop Time Status Last Admin Dose Admin Heparin Sodium (Porcine) (Heparin Sq 5000 Unit/0.5ml) 5,000 unit Q12 SQ 08/14/17 21:00 09/13/17 20:59 Acetaminophen (Tylenol Tab) 650 mg Q4H PRN PO 08/14/17 17:15 09/13/17 17:14 Al Hydrox/Mg Hydrox/Simethicone (Maalox Max Susp) 15 ml Q4H PRN PO 08/14/17 17:15 09/13/17 17:14 Magnesium Hydroxide (Milk Of Magnesia Susp) 30 ml Q12H PRN PO 08/14/17 17:15 09/13/17 17:14 Ondansetron HCl (Zofran Inj) 4 mg Q6H PRN IV 08/14/17 17:15 09/13/17 17:14 Nitroglycerin (Nitrostat Tab) 0.4 mg UD PRN SL 08/14/17 17:15 09/13/17 17:14 Morphine Sulfate (MoRPHine SULFATE INJ) 2 mg Q30M PRN IV 08/14/17 17:15 08/28/17 17:14 Aspirin (Ecotrin Tab) 81 mg QAM PO 08/15/17 09:00 09/14/17 08:59 08/15/17 08:05 81 MG Polyethylene (Miralax Powder Packet) 17 gm DAILY PRN PO 08/14/17 17:15 09/13/17 17:14 Albuterol (Ventolin Hfa Inhaler) 2 puffs Q4H PRN INH 08/14/17 17:15 09/13/17 17:14 Donepezil HCl (Aricept Tab) 10 mg HS PO 08/14/17 21:00 09/13/17 20:59 08/14/17 20:50 10 MG Levothyroxine Sodium (Synthroid Tab) 50 mcg DAILYBB PO 08/15/17 06:30 09/14/17 06:59 08/15/17 05:48 50 MCG Mometasone Furoate (Asmanex 220MCG Inh) 1 puff BID INH 08/14/17 21:00 09/13/17 20:59 08/15/17 08:06 1 PUFF Montelukast Sodium (Singulair Tab) 10 mg DAILY PO 08/15/17 09:00 09/14/17 08:59 08/15/17 08:05 10 MG Salmeterol Xinafoate (Serevent Diskus Inh) 1 puffs BID INH 08/14/17 21:00 09/13/17 20:59 08/15/17 08:05 1 PUFFS Sertraline HCl (Zoloft Tab) 12.5 mg DAILY PO 08/15/17 09:00 09/14/17 08:59 08/15/17 08:05 12.5 MG Miscellaneous (Remove Lidoderm Patch) 1 ea DAILY@0900 N/A 08/15/17 09:00 09/14/17 08:59 Lidocaine (Lidoderm Patch 5%) 1 patch HS TD 08/14/17 19:30 09/13/17 19:29 08/14/17 19:50 1 PATCH Miscellaneous (Iv Fluids Completed) 1 ea PRN PRN N/A 08/14/17 20:15 08/14/18 20:14 Ketorolac Tromethamine (Toradol Inj) 15 mg Q6H PRN IV. 08/14/17 22:00 08/19/17 21:59 Physical Exam Vital Signs Past 12 Hours Date Time Temp Pulse Resp B/P (MAP) Pulse Ox O2 Delivery O2 Flow Rate FiO2 08/15/17 07:26 36.7 61 16 151/74 (99) 95 Room Air 08/15/17 04:00 Room Air 08/15/17 03:33 36.7 61 18 155/74 (101) 95 Room Air 08/15/17 00:00 Room Air 08/14/17 23:13 36.8 62 18 151/68 (95) 94 Room Air The patient is alert and oriented. Mood and affect appeared normal. He answered all questions appropriately. HEENT: Pupils are equal and reactive to light and accommodation. Extraocular movements are intact. The sclerae are anicteric. Neuro: Cranial nerves intact Neck: Patient's neck is supple. He has palpable carotid pulses bilaterally without bruits on auscultation. There is no evidence of jugular venous distention. The thyroid is not enlarged. Lungs: Clear to auscultation bilaterally. He has good air movement without use of accessory muscles. No rales wheezes or rhonchi. Cardiac: Heart demonstrates a regular rate and rhythm. Normal S1 and S2. Medium-pitched mid-peaking crescendo systolic murmur. Pulses: The patient has palpable radial pulses bilaterally that are equal in intensity Extremities: There was no evidence of hypoperfusion. There is no cyanosis or clubbing. There is no edema. Skin: I did not appreciate any rashes on examination today. Data Laboratory Results: Last 24 Hours Test 08/14/17 15:10 08/14/17 15:18 08/14/17 20:23 08/14/17 22:15 White Blood Count 7.21 K/uL Red Blood Count 5.25 M/uL Hemoglobin 17.4 g/dL Hematocrit 49.8 % Mean Corpuscular Volume 94.9 fL Mean Corpuscular Hemoglobin 33.1 pg Mean Corpuscular Hemoglobin Concent 34.9 g/dl Platelet Count 197 K/uL Mean Platelet Volume 9.6 fL Neutrophils (%) (Auto) 60.7 % Lymphocytes (%) (Auto) 31.3 % Monocytes (%) (Auto) 6.7 % Eosinophils (%) (Auto) 0.7 % Basophils (%) (Auto) 0.3 % Neutrophils # (Auto) 4.38 K/uL Lymphocytes # (Auto) 2.26 K/uL Monocytes # (Auto) 0.48 K/uL Eosinophils # (Auto) 0.05 K/uL Basophils # (Auto) 0.02 K/uL RDW Standard Deviation 46.7 fL RDW Coefficient of Variation 13.5 % Immature Granulocyte % (Auto) 0.3 % Immature Granulocyte # (Auto) 0.02 K/uL Prothrombin Time 10.9 SECONDS Prothromb Time International Ratio 1.0 Activated Partial Thromboplast Time 25.2 SECONDS Partial Thromboplastin Ratio 1.0 Sodium Level 140 mmol/L Potassium Level 3.5 mmol/L Chloride Level 103 mmol/L Carbon Dioxide Level 27 mmol/L Anion Gap 10.0 mmol/L Blood Urea Nitrogen 24 mg/dl Creatinine 1.48 mg/dl Est Creatinine Clear Calc Drug Dose 32.9 ml/min Estimated GFR () 49.3 Estimated GFR (Non- 42.5 BUN/Creatinine Ratio 16.0 Random Glucose 130 mg/dl Calcium Level 9.0 mg/dl Bedside Troponin I 0.050 ng/ml Troponin I 0.054 ng/ml Urine Color DK YELLOW Urine Appearance CLOUDY Urine pH 5.0 Urine Specific [place] 1.036 Urine Protein 1+ Urine Glucose (UA) 1+ Urine Ketones 1+ Urine Occult Blood 1+ Urine Nitrite NEG Urine Bilirubin NEG Urine Urobilinogen NEG Urine Leukocyte Esterase NEG Urine WBC (Auto) 1-5 /hpf Urine RBC (Auto) 5-10 /hpf Urine Hyaline Casts (Auto) 5-10 /lpf Urine Epithelial Cells (Auto) 10-20 /lpf Urine Bacteria (Auto) NEG Test 08/15/17 01:28 08/15/17 07:51 Troponin I 0.057 ng/ml 0.056 ng/ml Imaging: X-ray examination emergency room did not demonstrate any back or hip fractures EKG: Atrially paced rhythm Telemetry reviewed: No arrhythmia I performed a complete device interrogation today. No arrhythmias. Normal rate histograms. Normal device function. No significant ventricular pacing. Echocardiogram performed February 2017 revealed moderate aortic stenosis with trans aortic velocity less than 3 meters/second. Preserved LV systolic function Assessment & Plan 1. Elevated cardiac biomarkers: The actual elevation in his biomarkers is quite minimal. There has been no significant rise or fall suggesting the absence of recent acute coronary syndrome. Patient did not present with any symptoms of chest discomfort. I do not think he had symptoms suggestive of an acute coronary syndrome a recent cardiac decompensation. At this point I would not recommend any additional cardiac evaluation. 2. Aortic stenosis: Moderate in February of this past year. While he does have dyspnea on occasion he also has known lung disease. 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 The patient can be followed routinely in the outpatient setting. 3. Sick sinus syndrome: Normally functioning dual-chamber pacemaker with normal rate histograms. No arrhythmias. 4. Hypertension: Patient has history of hypertension but is not currently on antihypertensive medication. His blood pressures were high here in the hospital and consideration could be given for starting therapy.
--- NOTE | 2017-08-15 10:46 | Discharge Instructions ---
Discharge Instructions Date of Service Aug 15, 2017. Admission Reason for Admission: Lumbago Without Sciatica Discharge Discharge Diagnosis / Problem: Lumbargo, minimally elevated troponin Discharge Goals Goal(s): Decrease discomfort, Improve function, Increase independence, Improve disease control Activity Recommendations Activity Limitations: resume your previous activity Lifting Limitations: no more than 25 pounds, gradually increase as tolerated Exercise/Sports Limitations: rest today, gradually increase as tolerated May Resume Sexual Activity: when tolerated Shower/Bathe: no limitations Driving or Machine Use: no limitations . Instructions / Follow-Up Instructions / Follow-Up You were admitted to [facility] with lower back pain and diagnosed with lumbargo You were found to have elevated troponin (cardiac markers) which were evaluated by cardiology and determined to not be of any concern. . During your stay here you were treated with supportive care. Medications: Continue taking your medications as prescribed. Appointments: Follow up with PCP within 1 week. Follow up with cardiology within 1-2 weeks. Current Hospital Diet Patient's current hospital diet: AHA Diet (Heart Healthy) Discharge Diet Recommended Diet: AHA Diet (Heart Healthy) Pending Studies Studies pending at discharge: no Medical Emergencies . Who to Call and When: Medical Emergencies: If at any time you feel your situation is an emergency, please call 911 immediately. . Non-Emergent Contact Non-Emergency issues call your: Primary Care Provider Call Non-Emergent contact if: you have a fever, your pain is not controlled, your pain is worsening, your pain is unusual for you, your pain is concerning you, you have any medication questions other concerns with your health. Call 911 or go directly to the Emergency Department if you experience any of the following: Chest pain, chest tightness, shortness of breath, abdominal pain , lightheadedness, dizziness, gastrointestinal bleeding, or have any other concerns regarding your health. . Past History Medical & Surgical History: (1) Lumbago without sciatica (2) Elevated troponin (3) Hypertension (4) Sick sinus syndrome . "Provider Documentation" section prepared by Tran Boswell. . [place] Drug Monitoring Program Search Results: no issues identified
[2017-08-15 11:03] VITALS: BP 151/74; PULSE 61; TEMP 36.7; O2SAT 95
--- NOTE | 2017-08-15 15:12 | Discharge Summary ---
Discharge Summary Date of Service Aug 15, 2017. Discharge Summary Admission Date: Aug 14, 2017 at 17:23 Discharge Date: Aug 15, 2017 Discharge Disposition: Home Principal Diagnosis: Lumbargo, elevated troponin Problems/Secondary Diagnoses: Medical Problems: (1) Asthma (2) Bronchitis (3) Hypertension (4) Lumbago without sciatica (5) Sick sinus syndrome (6) SOB (shortness of breath) (7) elevated troponin Procedures: L-SPINE MIN 4 VIEWS ROUTINE 08/14/17 FINDINGS: Mild loss of height of L1 is unchanged exam of February 13, 2015. There is no acute fracture. There is moderate multilevel degenerative disc disease and facet arthrosis. The appearance is similar to exam of February 13, 2015. IMPRESSION: 1. No acute lumbar spine fracture or subluxation. 2. 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 3. 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 CXR 08/14/17 IMPRESSION: 1. Cardiomegaly and cardiac pacemaker. There is no radiographic evidence of congestive failure. 2. No airspace consolidation or pleural effusion is identified. Consultations: Cardiology Medication Reconciliation Continued Medications: Albuterol Hfa (Ventolin Hfa) 200 Puffs/06627 Mcg Aers 2 PUFFS INH Q4-6HRS PRN for Rescue Cholecalciferol (Vitamin D 1000 Unit) 1,000 Unit Cap 1000 INTER.UNIT PO DAILY, CAP Donepezil HCl (Donepezil HCl) 10 Mg Tab 10 MG PO HS Levothyroxine Sodium (Levothyroxine Sodium) 50 Mcg Tab 50 MCG PO DAILY Mometasone Furoate (Asmanex Twisthaler 60 Met) 220 Mcg/Inh Aer 1 PUFF INH BID Montelukast Sod (Montelukast Sodium) 10 Mg Tab 10 MG PO DAILY Salmeterol Xinafoate (Serevent Diskus) 50 Mcg Aerp 1 PUFF INH BID Sertraline HCl (Sertraline HCl) 25 Mg Tab 12.5 MG PO DAILY Discharge Exam The patient was seen and examined this morning. Pt reports doing very well overall, main complaint is of low back pain when he is sitting or lying flat for too long. He reports lidocaine patch is helping to improve the pain. Discussion was held regarding his troponins and that cardiology did not feel this was cardiac in nature. His is present at bedside and was updated. Plan to discharge the patient today as already discussed disposition with Cardiology - Dr. Richards. ROS: Constitutional: No fever, sweats or chills Eyes: No diplopia, no worsening or blurred vision ENT: normal hearing, no trouble swallowing Respiratory: No cough, sputum, dyspnea at rest or on exertion Cardiovascular: No chest pain, tightness or palpitations Abdomen: No pain, nausea, vomiting, diarrhea or constipation Musculoskeletal: No joint pain, calf pain, swelling, + chronic low back pain, see HPI Neurologic: No weakness, numbness/tingling, or balance problems PE: General: awake, alert, no apparent distress Head: Normocephalic, atraumatic ENT: PERRL, EOMI, no pharyngeal exudate, mucous membranes moist Chest: Clear to auscultation, on room air, no adventitious breath sounds Cardiac: Regular rate and rhythm, + systolic murmur grade 2/6 at RUSB, no JVD, normal peripheral pulses, good capillary refill Abdominal: NABS x 4 quadrants, soft, nontender to palpation, no rebound, guarding or tenderness Extremities: Normal inspection, no peripheral edema or erythema, calfs nontender to palpation Psych: Normal mood and affect Neuro: AAO x 3, strength intact bilaterally and related 5/5, no motor deficits, speech is clear, no peripheral sensory deficits Hospital Course 87 year old gentleman with history of hemorrhagic stroke in 2016. Presented to the ED with back pain and shortness of breath. Found to have mild bump in troponin in the ER. Elevated Troponin - mild bump in troponin: from 0.050 --> 0.054 --> 0.057 - pt was tachycardic with HR in mid 90s last evening, possible that this was playing a role. - Cardiology consulted -did not feel that this was cardiac in nature, not a true NSTEMI. Will have follow-up with them within 2 weeks. - EKG reviewed - prn for any chest pain. Lumbago, right SI joint dysfunction - X-ray of lumbar spine with degenerative changes - no acute findings. Showing multilevel degenerative disc disease and facet arthrosis. 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 Total Time Spent: Greater than 30 minutes This includes examination of the patient, discharge planning, medication reconciliation, and communication with other providers. Discharge Instructions Please refer to the electronic Patient Visit Report (Discharge Instructions) for additional information. Follow-Up Follow up with your Primary Care Provider within 1 week. Follow-up with cardiology within 1-2 weeks. Additional Copies To Michel Junior M.D. Reviewed: Pt Seen/Exam by Me History Pt is doing well today. Back pain is improved. Tolerating PO without issue. Denies chest pain, SOB. Agree with HPI/ROS as noted by PA. General Appearance: WD/WN, no apparent distress Eye Exam: bilateral eye normal inspection, bilateral eye other (nml sclera) Respiratory: normal breath sounds, no respiratory distress Cardiovascular: normal peripheral pulses, regular rate, rhythm Gastrointestinal: non tender, soft Extremities: non-tender, no pedal edema Neurologic/Psychiatric: alert, normal mood/affect, oriented x 3 Skin Characteristics: normal color, warm/dry Assessment/Plan Agree with plan as outlined above Elevated trop that was stable at 0.5 x3 EKG neg Cardiology agrees this is not ACS F/U with PCP for back pain PRN
== END 2017-08-15 11:45 | disposition home or self-care (01) ==
LOC: C.EDB 14:36 → C.MED 17:23 → ENRESERV 17:37
PROVIDERS: ADMIT Family Medicine; ATTEND Family Medicine
DX: M54.5 Low back pain (principal); R79.89 Other specified abnormal findings of blood chemistry; J45.909 Unspecified asthma, uncomplicated; I10 Essential (primary) hypertension; I49.5 Sick sinus syndrome; Z79.899 Other long term (current) drug therapy; Z80.9 Family history of malignant neoplasm, unspecified; Z84.89 Family history of other specified conditions; Z86.73 Personal history of transient ischemic attack (TIA), and cerebral infarction without residual deficits

== ENCOUNTER → 2017-10-20 | Outpatient (CLI) | payer BC ==
[~2017-10-20] MED LIST changes: -ALBUAER INH; +ARC10 PO; +ASMIN/60 INH; +CHOL100027 PO; -CHOL200010 PO; -DILT-202 PO; -LEVO50TA PO; +LEVO50TA6 PO; -PRED-301 PO; -SALM50AE2 INH; +SERT1TAB88 PO; +SNG10 PO; +SRVDIN60 INH; +VNTHFA/IN INH
[2017-10-20 12:14] LABS: CALCIUM 8.9 mg/dl (8.5-10.1); CREATININE 1.5 mg/dl (0.60-1.40); POTASSIUM 4.2 mmol/L (3.5-5.1)
== END | disposition home or self-care (01) ==
LOC: C.LAB1850 10:43
PROVIDERS: ATTEND Internal Medicine Pulmonary Disease
DX: N28.89 Other specified disorders of kidney and ureter (principal)